=== PATIENT | female | born 1975 | race American Indian/Alaskan Native ===

== ENCOUNTER 2017-09-18 11:00 | Outpatient (CLI) | payer MEDICAID | END 2017-09-18 11:01 | disposition home or self-care (01) | LOC: SLR 11:00 | PROVIDERS: ATTEND Specialist | DX: G47.30 Sleep apnea, unspecified (principal); E66.9 Obesity, unspecified | CPT/HCPCS: G0399 ==

== ENCOUNTER → 2017-10-10 | Outpatient (CLI) | payer MEDICAID | LOC: SLR 11:00 | PROVIDERS: ATTEND Specialist | DX: G47.33 Obstructive sleep apnea (adult) (pediatric) (principal) | CPT/HCPCS: 95811 ==

== ENCOUNTER 2018-02-01 06:04 | Day surgery (SDC) | payer MEDICAID ==
[2018-02-01] MEDS ORDERED: HURRICAINE ONE 20% TOPICAL SPRAY MM ×2 (07:18→08:05)
[2018-02-01] MEDS ORDERED: WATER FOR IRRIG STERILE IR ONE (07:18)
--- NOTE | 2018-02-01 07:47 | Anesthesia Consultation ---
Anesthesia Consult and Med Hx Date of service: 02/01/18 - Airway Anesthetic Teeth Evaluation: Good (missing right upper ) ROM Head & Neck: Adequate Mental/Hyoid Distance: Adequate Mallampati Class: Class II Intubation Access Assessment: Probably Good - Pulmonary Exam CTA: Yes - Cardiac Exam Cardiac Exam: RRR - Pre-Operative Health Status ASA Pre-Surgery Classification: ASA3 Proposed Anesthetic Plan: MAC - Pulmonary Hx Sleep Apnea: Yes (cpap) - Other Systems Hx Obesity: Yes
--- NOTE | 2018-02-01 07:47 | Anesthesia Day of Surgery ---
Anesthesia Day of Surgery - Day of Surgery Patient Examined: Yes Patient H&P Reviewed: Yes Patient is NPO: Yes
[2018-02-01] MEDS ORDERED: NACL 0.9% 1000 ML 1,000 ML IV SCH (08:00)
[2018-02-01] MEDS ORDERED: XYLOCAINE MPF 2% ONE (08:00)
--- NOTE | 2018-02-01 08:03 | Discharge Summary ---
Providers - Providers Date of discharge: 02/01/18 Attending physician: ELINA BAUER Primary care physician: LUCY CHOPRA Hospitalization Condition: Good Procedures: egd Hospital course: pt had an uneventful egd as part of pre-op planning for bariatric surgery Disposition: DC-01 TO HOME OR SELFCARE Core Measure Documentation - Palliative Care Palliative Care/ Comfort Measures: Not Applicable - Core Measures Any of the following diagnoses?: none Exam - Physical Exam Narrative exam: unchanged from pre-op - Constitutional Vitals: Temp Pulse Resp BP Pulse Ox 97.5 F L 75 13 125/73 97 02/01/18 07:52 02/01/18 07:52 02/01/18 07:52 02/01/18 07:52 02/01/18 07:52 Plan Activity: no restrictions Weight Bearing Status: Full Weight Bearing Diet: regular Follow up with: LUCY CHOPRA MD [Primary Care Provider] - 7 Days
--- NOTE | 2018-02-01 08:05 | Operative Report ---
Operative Report Operative Report: OPERATIVE REPORT - EGD DATE 02/01/18 SURGERY: Upper endoscopy. SURGEON: Leslye Rebolledo M.D. SUBJECT SCIENTIFIC RESEARCH: Lizzette Gonzalez DO PRE OP DX:dyspepsia POST OP DX: hiatal hernia, gastritis, gastric polyp TYPE OF ANESTHESIA: MAC. ESTIMATED BLOOD LOSS: None. COMPLICATIONS: None. SPECIMENS REMOVED: biopsy of polyp in body FINDINGS: 1. Small hiatal hernia. 2. Otherwise, normal esophagus, stomach and first portion of duodenum. 3. gastritis, polyp in body of stomach INDICATIONS:INDICATION FOR PROCEDURE: Patient is a 42-year-old female with a long history of morbid obesity. She is planned to have a weight loss procedure and is here for preoperative planning EGD. PROCEDURE DETAILS: After consent was reviewed, patient was taken back to the operating room where patient was placed in the left lateral decubitus position and a bite block was placed in the mouth. After a time-out was called, MAC anesthesia was initiated. I then passed the endoscope into her oropharynx, into her esophagus, visualized the entire esophagus, which was all within normal limits. I then visualized the stomach and the first portion of the duodenum. Gastritis of the antrum was noted. Several polyps in the body and cardia of the stomach were also noted. A biopsy was performed on a polyp in the body. I could clearly visualize. I then retroflexed the scope in the stomach and visualized the hiatus and I could see a small hiatal hernia. I then desufflated the stomach and removed the endoscope. Patient tolerated procedure well and was transferred to recovery room in good and stable condition.
[2018-02-01] MEDS ORDERED: DIPRIVAN 10 MG/ML IV ONE ×2 (08:13→08:42)
[2018-02-01 09:00] VITALS: BP 120/68
--- NOTE | 2018-02-02 19:19 | Post Anesthesia Evaluation ---
- Post Anesthesia Evaluation Patient Participated: Yes Airway Patent: Yes Stable Respiratory Function: Yes Nausea/Vomiting: No Temp > 96.8F: Yes Pain Manageable: Yes Adequeate Hydration: Yes Anesthesia Complications: No Block Receding Appropriately: Not Applicable
== END 2018-02-01 06:05 | disposition home or self-care (01) ==
LOC: GIO 06:04
PROVIDERS: ATTEND Surgery
DX: K29.70 Gastritis, unspecified, without bleeding (principal); K44.9 Diaphragmatic hernia without obstruction or gangrene; E66.01 Morbid (severe) obesity due to excess calories; M15.4 Erosive (osteo)arthritis; G47.33 Obstructive sleep apnea (adult) (pediatric); Z68.42 Body mass index [BMI] 45.0-49.9, adult; M19.90 Unspecified osteoarthritis, unspecified site; Z98.890 Other specified postprocedural states
CPT/HCPCS: 43239; 81025; 88305; 88342; J2704; J7030